=== PATIENT | male | born 1950 | race Caucasian/White ===

== ENCOUNTER → 2020-10-09 08:55 | Outpatient (BNVA) | payer MEDICARE, OTHER, SELFPAY | PROVIDERS: PCP Internal Medicine; Visit Provider Urology | DX: C67.9 Malignant neoplasm of bladder, unspecified (principal); N30.90 Cystitis, unspecified without hematuria | CPT/HCPCS: 52000; 81002; 99212 ==

== ENCOUNTER 2021-01-09 09:59 | Outpatient (REF) | payer MEDICARE, OTHER, SELFPAY ==
[2021-01-09 13:52] LABS: Urine Cytology See Pathology rpt
== END 2021-01-09 10:00 | disposition home or self-care (01) ==
LOC: CF 09:59
PROVIDERS: PCP Internal Medicine; Visit Provider Urology
DX: C67.9 Malignant neoplasm of bladder, unspecified (principal); N30.90 Cystitis, unspecified without hematuria
CPT/HCPCS: 52000; 81002; 88112

== ENCOUNTER → 2021-04-08 12:57 | Outpatient (BNVA) | payer MEDICARE, OTHER, SELFPAY | PROVIDERS: PCP Internal Medicine; Visit Provider Urology | DX: C67.9 Malignant neoplasm of bladder, unspecified (principal); N21.0 Calculus in bladder; N40.0 Benign prostatic hyperplasia without lower urinary tract symptoms | CPT/HCPCS: 52000; 99212 ==

== ENCOUNTER 2021-08-13 08:53 | Outpatient (REF) | payer MEDICARE, OTHER, SELFPAY ==
[2021-08-14 13:51] LABS: Urine Cytology See Pathology rpt
== END 2021-08-13 08:54 | disposition home or self-care (01) ==
LOC: HO.LAB 08:53
PROVIDERS: PCP Internal Medicine; Visit Provider Urology
DX: C67.9 Malignant neoplasm of bladder, unspecified (principal); N40.1 Benign prostatic hyperplasia with lower urinary tract symptoms
CPT/HCPCS: 52000; 88112; 99212

== ENCOUNTER 2022-02-12 08:48 | Outpatient (REF) | payer MEDICARE, OTHER, SELFPAY | END 2022-02-12 08:49 | disposition home or self-care (01) | LOC: HO.LAB 08:48 | PROVIDERS: PCP Internal Medicine; Visit Provider Urology | DX: C67.9 Malignant neoplasm of bladder, unspecified (principal); N40.1 Benign prostatic hyperplasia with lower urinary tract symptoms | CPT/HCPCS: 52000; 99212 ==

== ENCOUNTER 2022-05-04 09:03 | Outpatient (REF) | payer MEDICARE, OTHER, SELFPAY ==
[2022-05-04 11:51] LABS: Urine Cytology See Pathology rpt
[2022-05-04 12:15] LABS: Appearance Urine CLOUDY; Color Urine YELLOW; Glucose Urine UA NEG (NEG); Leukocyte Esterase Urine 2+ (NEG); Nitrite Urine POS (NEG); PH 7.5 (5.0-8.0); Specific Gravity - Urine 1.015 (1.005-1.025); Urine Blood 1+ (NEG); Urine Ketones NEG (NEG); Urine Protein TRACE MG/DL (NEG-TRACE)
[2022-05-04 12:37] LABS: WBC Urine TNTC /HPF (0-4)
[2022-05-04 12:38] LABS: Bacteria Urine 3+ /LPF
== END 2022-05-04 09:04 | disposition home or self-care (01) ==
LOC: HO.HMGCLDS 09:03
PROVIDERS: Visit Provider Urology
DX: C67.9 Malignant neoplasm of bladder, unspecified (principal); N30.90 Cystitis, unspecified without hematuria
CPT/HCPCS: 81001; 87086; 87088; 87186; 88112

== ENCOUNTER 2022-08-13 08:56 | Outpatient (REF) | payer MEDICARE, OTHER, SELFPAY ==
[2022-08-13 17:02] LABS: Urine Cytology See Pathology rpt
== END 2022-08-13 08:57 | disposition home or self-care (01) ==
LOC: HO.LAB 08:56
PROVIDERS: Visit Provider Urology
DX: C67.9 Malignant neoplasm of bladder, unspecified (principal); N40.1 Benign prostatic hyperplasia with lower urinary tract symptoms
CPT/HCPCS: 52000; 88112; 99212

== ENCOUNTER → 2023-02-18 08:47 | Outpatient (BNVA) | payer MEDICARE, OTHER, SELFPAY | PROVIDERS: PCP Internal Medicine; Visit Provider Urology | DX: N40.1 Benign prostatic hyperplasia with lower urinary tract symptoms (principal) | CPT/HCPCS: 52000; 99212 ==

== ENCOUNTER 2023-08-26 08:59 | Outpatient (REF) | payer MEDICARE, OTHER, SELFPAY | END 2023-08-26 09:00 | disposition home or self-care (01) | LOC: HO.LAB 08:59 | PROVIDERS: Visit Provider Urology | DX: C67.9 Malignant neoplasm of bladder, unspecified (principal); N40.1 Benign prostatic hyperplasia with lower urinary tract symptoms; R39.16 Straining to void | CPT/HCPCS: 52000; 81003; 88112; 99212 ==

== ENCOUNTER 2023-08-26 08:59 | Outpatient (AMB) | payer MEDICARE, OTHER, SELFPAY ==
--- NOTE | 2023-08-26 09:14 | MHC.OFFVIS ---
Intake Intake Visit Reasons: 6m/cysto(Bladder Cancer) Intake Note: Patient is Present for Cystoscopy Urology Med: None Antibiotic Allergy: None Blood Thinner: None Pharmacy: [facility] Cystoscope lot: [id number] exp:04/03/2025 Allergies No Known Allergies [No Known Allergies*] Allergy (Verified 08/26/23 09:20) HPI HPI Comments History of Present Illness Details Blas is a pleasant male. He is a patient Dr. Garcia. He is here for the following urologic conditions - bladder cancer Surveillance cystoscopy No evidence of recurrence Open TURP Bladder with trabeculation and cellules Bladder Cancer: May 2019 high-grade multifocal completed TURBT with gemcitabine sequence Bladder cancer was initially diagnosed during evaluation for microscopic hematuria - Dr Mason 04/08. Bladder intervention(s) performed 06/08 , TURBT, TUR and bladder stone removal 06/08 , TURBT, T1 invades subepthium, High Grade, multifocal 07/09 BCG induction, 09/08 Cysto - Bbx - BCG effect, 01/10 Gemcitabine boost, 10/10 gemcitabine boost Recurrence Risk per EORTC High Risk. Prior Cystoscopy 04/08 , Positive 01/10 BCG changes no lesions, 04/09 no lesions, 10/10 NAD, 04/10 NAD, 08/11 NAD, 04/11 NAD, 08/12 NAD, 08/13 NAD Prior Cytology 04/08 , Cells consistent with malignancy 04/08 , FISH, positive, 02/07 , FISH negative, 08/11 rare atypical, 05/12 NAD, 08/12 NAD Prior Imaging 04/08 , CT scan with contrast, No evidence for metastases, cysts in kidney. Planned treatment Repeat cystoscopy in 6 months. BPH Prior TURP Effective emptying High bladder neck on cystoscopy - significant trabeculation and diverticulum formation [facility] Medical History Acute eczema Thyroid disease Gross hematuria Acute prostatitis Bladder stone Benign prostatic hyperplasia with lower urinary tract symptoms Feeling of incomplete bladder emptying Malignant neoplasm of lateral wall of urinary bladder Microscopic hematuria Surgical History History of surgery Review of Systems Const Denies chills and Denies fever(s) Card Reports no additional complaints and Denies syncope Resp Denies cough GI Denies abdominal pain and Denies heartburn Reports as per HPI and Denies change in libido Neuro Denies syncope Psych Denies change in libido Endo Denies change in libido Physical Exam Const General: cooperative, healthy appearing, comfortable and no acute distress Orientation/consciousness: patient oriented x3 HEENT Face and sinus: Yes normal facial exam Mouth: moist mucous membranes Neck Neck: Yes normal visual inspection, Yes full ROM and Yes trachea midline Chest Chest palpation & inspection: normal inspection of the chest Resp Effort & Inspection: normal respiratory effort, able to speak in complete sentences and no respiratory distress GI Inspection: Yes normal to inspection Back/Spine/Pelvis Cervical Spine: normal cervical lordosis Thoracic/Lumbar Spine: thoracic and lumbar spine normal to inspection Skin General skin exam: no rashes or lesions noted Neuro General: patient oriented x3, gait normal, tone normal and moves all extremities Extrem General: Yes normal to inspection and Yes capillary refill normal Office Procedures Cystoscopy Consent Discussed risk and benefit or proposed procedure with the patient. Information consent for procedure given to the patient. Discussed technical aspects, risks, benefits and alternatives in full. Addressed all of the patient's questions and concerns regarding the procedure. The patient demonstrated knowledge and understanding. They wish to proceed with this procedure. Preparation The patient was prepped in the usual manner. A dental surgeon was present and in the room. Genitalia was prepped with betadine solution in a sterile manner. Lidocaine Jelly 2% was placed into the urethra and 16Fr flexible Olympus cystoscope was inserted into the meatus after adequate lubrication. Procedure Meatus circumcised Urethra anterior posterior urethra normal Prostatic Urethra prior TURP Bladder examination with retroflexion of cystoscope Bladder Orifices normal shape and position Bladder Capacity enlarged Trabeculations grade 3 Cellule Formation years Diverticulum Formation - Mucosal Erythema -- Bladder Tumor scar 49092-[id number] DISPOSABLE SCOPE URO-G FLEXIBLE SCOPE Procedure code (CPT) selection complete Office Meds lidocaine HCl 2 % mucosal jelly in applicator Performing Provider: Jose Luis Mason MD Performing Location: [facility] Administered by: Joseph Monahan LPN on 08/26/23 09:35 Dose Route Admin Location Dispensed Lot Number Expiration Date NDC Battery Recharger 10 mL intra-urethral 10 mL nitrofurantoin monohydrate/macrocrystals 100 mg capsule Performing Provider: Jose Luis Mason MD Performing Location: [facility] Administered by: Joseph Monahan LPN on 08/26/23 09:35 Dose Route Admin Location Dispensed Lot Number Expiration Date NDC Battery Recharger 100 mg PO 1 cap naproxen 500 mg tablet Performing Provider: Jose Luis Mason MD Performing [facility] Administered by: Joseph Monahan LPN on 08/26/23 09:35 Dose Route Admin Location Dispensed Lot Number Expiration Date NDC Battery Recharger 500 mg PO 1 tab Results AMB Urinalysis, Automated UA Leukoctes 0 Hung/uL Last Edit by KANCHAN Pretty on 08/26/23 09:31 UA Nitrite Negative Last Edit by TREVA PrettyA on 08/26/23 09:31 UA Urobilinogen 1 mg/dL Last Edit by KANCHAN Pretty on 08/26/23 09:31 UA Protein 0 mg/dL Last Edit by TREVA PrettyA on 08/26/23 09:31 UA pH 6.0 Last Edit by KANCHAN Pretty on 08/26/23 09:31 UA Blood 10 Casey/uL Last Edit by Silke Campbell A on 08/26/23 09:31 UA Specific [place] 1.015 Last Edit by KANCHAN Pretty on 08/26/23 09:31 UA Ketone Negative Last Edit by KANCHAN Pretty on 08/26/23 09:31 UA Bilirubin 0 mg/dL Last Edit by TREVA PrettyA on 08/26/23 09:31 UA Glucose 0 mg/dL Last Edit by KANCHAN Pretty on 08/26/23 09:31 Results Reviewed Results Reviewed: Laboratory Last Values Urine pH (Auto) 6.0 08/26/23 09:21 Specific [place] (Auto) 1.015 08/26/23 09:21 Urine Protein (Auto) 0 mg/dL 08/26/23 09:21 Glucose (UA)(Auto) 0 mg/dL 08/26/23 09:21 Urine Ketones (Auto) Negative 08/26/23 09:21 Urine Blood (Auto) 10 Casey/uL 08/26/23 09:21 Urine Nitrite (Auto) Negative 08/26/23 09:21 Urine Bilirubin (Auto) 0 mg/dL 08/26/23 09:21 Urine Urobilinogen (Auto) 1 mg/dL 08/26/23 09:21 Leukocyte Esterase (Auto) 0 Hung/uL 08/26/23 09:21 Assessment & Plan Assessment & Plan (1) Benign prostatic hyperplasia with lower urinary tract symptoms: Code(s): N40.1 - Benign prostatic hyperplasia with lower urinary tract symptoms Qualifiers: Lower urinary tract symptom detail: straining on urination Qualified Code(s): N40.1 - Benign prostatic hyperplasia with lower urinary tract symptoms; R39.16 - Straining to void Plan Six month follow-up cysto Orders: Orders AMB Urinalysis Automated Today C67.9 - Malignant neoplasm of bladder, unspecified, Z13.9 - Encounter for screening, unspecified Urine Cytology Today C67.9 - Malignant neoplasm of bladder, unspecified AMB Cystoscopy Today C67.9 - Malignant neoplasm of bladder, unspecified Patient Instructions: Imaging studies, laboratory and physical exam results were discussed and reviewed in detail. No major barriers to patient understanding were identified. An opportunity to ask questions regarding the treatment plan was provided. All questions were answered. The patient expressed understanding and agreement with the above treatment plan. The patient is aware they should contact our office by phone for worsening of their current condition or the appearance of new urologic symptoms. Compliance is encouraged with any medications and followup testing that is ordered. It is a privilege to participate in the urologic care of your patient. If you have any questions or concerns regarding treatment for the above conditions, or other urologic issues, please do not hesitate to contact me. The office telephone contact is [phone]. This note is constructed using voice recognition software. While every effort has been made to ensure accuracy public relations studies director errors may have been included. Yours sincerely, Dr Jose Luis Mason MD, [facility] - Urology Providers of Expert, Compassionate Care for the Genitourinary System Coding Level of Care Code Est Pt Level 3 (19058) Diagnoses Benign prostatic hyperplasia (BPH) with straining on urination N40.1; R39.16 Lower urinary tract symptom detail: straining on urination CPT Codes Cystoscopy - CPT: 13371-[id number] ([id number])
== END 2023-08-26 10:01 | disposition home or self-care (01) ==
PROVIDERS: PCP Internal Medicine; Visit Provider Urology
DX: N40.1 Benign prostatic hyperplasia with lower urinary tract symptoms (principal); R39.16 Straining to void; Z13.9 Encounter for screening, unspecified; C67.9 Malignant neoplasm of bladder, unspecified
CPT/HCPCS: 52000; 99213

== ENCOUNTER 2024-02-28 08:45 | Outpatient (AMB) | payer MEDICARE, OTHER, SELFPAY ==
--- NOTE | 2024-02-28 08:56 | A.OFFVIS_ITS ---
Intake Intake Visit Reasons: 6M Cysto(Confirmed) Intake Note: Patient is Present for Cystoscopy Urology Med:none Antibiotic Allergy: None Blood Thinner:None Pharmacy: [facility] Disposable Cystoscope lot: [id number] exp: 09/29/2026 Allergies No Known Allergies [No Known Allergies*] Allergy (Verified 02/28/24 08:57) Medication List - Last Reconciled 02/28/24 by Jose Luis Mason MD amlodipine 5 mg PO DAILY atorvastatin 80 mg PO DAILY levothyroxine 25 mcg PO DAILY levothyroxine 75 mcg PO DAILY metoprolol succinate ER 25 mg PO DAILY pravastatin 20 mg PO DAILY sulfamethoxazole-trimethoprim 800-160 mg (Bactrim DS) 1 tab PO BID 3 days ticagrelor (Brilinta) 90 mg PO BID HPI HPI Comments History of Present Illness Details Blas is a pleasant male. He is a patient Dr. Garcia. He is here for the following urologic conditions - bladder cancer - occasional UTI Surveillance cystoscopy No evidence of recurrence Open TURP Bladder with trabeculation and cellules Occasional infection would like on had medication. Bactrim scope provided Has been free from disease for 5 years. Move to yearly follow-up Bladder Cancer: May 2019 high-grade multifocal completed TURBT with gemcitabine sequence Bladder cancer was initially diagnosed during evaluation for microscopic hematuria - Dr Mason 04/08. Bladder intervention(s) performed 06/08 , TURBT, TUR and bladder stone removal 06/08 , TURBT, T1 invades subepthium, High Grade, multifocal 07/09 BCG induction, 09/08 Cysto - Bbx - BCG effect, 01/10 Gemcitabine boost, 10/10 gemcitabine boost Recurrence Risk per EORTC High Risk. Prior Cystoscopy 04/08 , Positive 01/10 BCG changes no lesions, 04/09 no lesions, 10/10 NAD, 04/10 NAD, 08/11 NAD, 04/11 NAD, 08/12 NAD, 08/13 NAD Prior Cytology 04/08 , Cells consistent with malignancy 04/08 , FISH, positive, 02/07 , FISH negative, 08/11 rare atypical, 05/12 NAD, 08/12 NAD, 08/13 NAD Prior Imaging 04/08 , CT scan with contrast, No evidence for metastases, cysts in kidney. Planned treatment Repeat cystoscopy in 6 months. BPH Prior TURP Effective emptying High bladder neck on cystoscopy - significant trabeculation and diverticulum formation PFS Medical History Acute eczema Thyroid disease Gross hematuria Acute prostatitis Bladder stone Benign prostatic hyperplasia with lower urinary tract symptoms Feeling of incomplete bladder emptying Malignant neoplasm of lateral wall of urinary bladder Microscopic hematuria Surgical History History of surgery Review of Systems Const Denies chills and Denies fever(s) Card Reports no additional complaints and Denies syncope Resp Denies cough GI Denies abdominal pain and Denies heartburn Reports as per HPI and Denies change in libido Neuro Denies syncope Psych Denies change in libido Endo Denies change in libido Physical Exam Const General: cooperative, healthy appearing, comfortable and no acute distress Orientation/consciousness: patient oriented x3 HEENT Face and sinus: Yes normal facial exam Mouth: moist mucous membranes Neck Neck: Yes normal visual inspection, Yes full ROM and Yes trachea midline Chest Chest palpation & inspection: normal inspection of the chest Resp Effort & Inspection: normal respiratory effort, able to speak in complete sentences and no respiratory distress GI Inspection: Yes normal to inspection Back/Spine/Pelvis Cervical Spine: normal cervical lordosis Thoracic/Lumbar Spine: thoracic and lumbar spine normal to inspection Skin General skin exam: no rashes or lesions noted Neuro General: patient oriented x3, gait normal, tone normal and moves all extremities Extrem General: Yes normal to inspection and Yes capillary refill normal Office Procedures Cystoscopy Consent Discussed risk and benefit or proposed procedure with the patient. Information consent for procedure given to the patient. Discussed technical aspects, risks, benefits and alternatives in full. Addressed all of the patient's questions and concerns regarding the procedure. The patient demonstrated knowledge and understanding. They wish to proceed with this procedure. Preparation The patient was prepped in the usual manner. A hvac services professional was present and in the room. Genitalia was prepped with betadine solution in a sterile manner. Lidocaine Jelly 2% was placed into the urethra and 16Fr flexible Olympus cystoscope was inserted into the meatus after adequate lubrication. Procedure Meatus circumcised Urethra anterior and posterior within normal Prostatic Urethra TURP defect Bladder examination with retroflexion of cystoscope Bladder Orifices normal shape and position Bladder Capacity medium Trabeculations moderate Cellule Formation yes, multiple Diverticulum Formation - Mucosal Erythema normal Bladder Tumor scarring [id number] DISPOSABLE SCOPE URO-G FLEXIBLE SCOPE Procedure code (CPT) selection complete Office Meds lidocaine HCl 2 % mucosal jelly in applicator Performing Provider: Jose Luis Mason MD Performing Location: [facility] [place] [facility] Administered by: Nickei Mabry RN on 02/28/24 09:02 Dose Route Admin Location Dispensed Lot Number Expiration Date NDC Branch Coordinator 10 mL intra-urethral 10 mL nitrofurantoin monohydrate/macrocrystals 100 mg capsule Performing Provider: Jose Luis Mason MD Performing Location: [facility] [place] [facility] Administered by: Nickie Mabry RN on 02/28/24 09:02 Dose Route Admin Location Dispensed Lot Number Expiration Date NDC Branch Coordinator 100 mg PO 1 cap naproxen 500 mg tablet Performing Provider: Jose Luis Mason MD Performing Location: [facility] [place] [facility] Administered by: Nickie Mabry RN on 02/28/24 09:02 Dose Route Admin Location Dispensed Lot Number Expiration Date NDC Branch Coordinator 500 mg PO 1 tab Results AMB Urinalysis, Automated UA Leukoctes 0 Hung/uL Last Edit by KANCHAN Pretty on 02/28/24 09:07 UA Nitrite Negative Last Edit by KANCHAN Pretty on 02/28/24 09:07 UA Urobilinogen 0.2 mg/dL Last Edit by KANCHAN Pretty on 02/28/24 09:0 7 UA Protein 0 mg/dL Last Edit by KANCHAN Pretty on 02/28/24 09:07 UA pH 6.0 Last Edit by KANCHAN Pretty on 02/28/24 09:07 UA Blood 25 Casey/uL Last Edit by KANCHAN Pretty on 02/28/24 09:07 UA Specific [place] 1.020 Last Edit by KANCHAN Pretty on 02/28/24 09: 07 UA Ketone Negative Last Edit by KANCHAN Pretty on 02/28/24 09:07 UA Bilirubin 0 mg/dL Last Edit by KANCHAN Pretty on 02/28/24 09:07 UA Glucose 0 mg/dL Last Edit by KANCHAN Pretty on 02/28/24 09:07 Assessment & Plan Assessment & Plan (1) Bladder cancer: Comment: 2019 superficial high-grade bladder cancer Code(s): C67.9 - Malignant neoplasm of bladder, unspecified (2) Benign prostatic hyperplasia with lower urinary tract symptoms: Code(s): N40.1 - Benign prostatic hyperplasia with lower urinary tract symptoms Qualifiers: Lower urinary tract symptom detail: straining on urination Qualified Code(s): N40.1 - Benign prostatic hyperplasia with lower urinary tract symptoms; R39.16 - Straining to void Plan Twelve month follow-up cysto Orders: Orders FISH Bladder Cancer Today C67.9 - Malignant neoplasm of bladder, unspecified AMB Urinalysis Automated Today Z13.9 - Encounter for screening, unspecified AMB Cystoscopy Today C67.9 - Malignant neoplasm of bladder, unspecified Medications: New sulfamethoxazole-trimethoprim 800-160 mg (Bactrim DS) 1 tab PO BID 3 days 6 tabs 1RF N40.1 - Benign prostatic hyperplasia with lower urinary tract symptoms, R39.16 - Straining to void Patient Instructions: Imaging studies, laboratory and physical exam results were discussed and reviewed in detail. No major barriers to patient understanding were identified. An opportunity to ask questions regarding the treatment plan was provided. All questions were answered. The patient expressed understanding and agreement with the above treatment plan. The patient is aware they should contact our office by phone for worsening of their current condition or the appearance of new urologic symptoms. Compliance is encouraged with any medications and followup testing that is ordered. It is a privilege to participate in the urologic care of your patient. If you have any questions or concerns regarding treatment for the above conditions, or other urologic issues, please do not hesitate to contact me. The office telephone contact is [phone]. This note is constructed using voice recognition software. While every effort has been made to ensure accuracy warping mill operator errors may have been included. Yours sincerely, Dr Jose Luis Mason MD, [facility] - Urology Providers of Expert, Compassionate Care for the Genitourinary System Coding Level of Care Code Est Pt Level 4 (36894) Diagnoses Bladder cancer C67.9 Benign prostatic hyperplasia (BPH) with straining on urination N40.1; R39.16 Lower urinary tract symptom detail: straining on urination CPT Codes Cystoscopy - CPT: [id number]-[id number] ([id number])
== END 2024-02-28 09:43 | disposition home or self-care (01) ==
PROVIDERS: PCP Internal Medicine; Visit Provider Urology
DX: N40.1 Benign prostatic hyperplasia with lower urinary tract symptoms (principal); R39.16 Straining to void; Z85.51 Personal history of malignant neoplasm of bladder; Z13.9 Encounter for screening, unspecified
CPT/HCPCS: 52000; 99214

== ENCOUNTER 2024-02-28 08:45 | Outpatient (REF) | payer MEDICARE, OTHER, SELFPAY | END 2024-02-28 08:46 | disposition home or self-care (01) | LOC: HO.LAB 08:45 | PROVIDERS: PCP Internal Medicine; Visit Provider Urology | DX: C67.9 Malignant neoplasm of bladder, unspecified (principal); R39.16 Straining to void; N40.1 Benign prostatic hyperplasia with lower urinary tract symptoms; Z79.899 Other long term (current) drug therapy | CPT/HCPCS: 52000; 81003; 88121; 99212 ==

== ENCOUNTER → 2024-07-18 13:57 | Outpatient (RCR) | payer MEDICARE, OTHER, SELFPAY ==
[2020-10-29 10:28] VITALS: BMI 29.7
[2020-10-29 10:29] VITALS: BP 160/89; PULSE 77; RESP 20; TEMP 37.1; O2SAT 98
[2020-10-29 10:40] LABS: Glucose Urine UA NEG (NEG); Leukocyte Esterase Urine NEG (NEG); Nitrite Urine NEG (NEG); PH 6.5 (5.0-8.0); Urine Blood TRACE (NEG); Urine Ketones NEG (NEG); Urine Protein NEG (NEG-TRACE)
[2020-10-29 10:41] LABS: Appearance Urine CLEAR; Color Urine YELLOW
[2020-10-29 10:47] LABS: RBC Urine 0-2 /HPF (0); WBC Urine 0 /HPF (0-4)
[2020-10-29] MEDS: Lidocaine HCl 2 % Urojet 10 ML JEL.PF.APP TOPICAL (12:27)
--- NOTE | 2020-10-29 14:49 | MHC.HEMONC ---
Addendum entered by Katherine Galindo RN 10/29/20 15:22: Some difficulty passing catheter, small amount of bleeding noted after cath placed Original Note: Pt here for bladder instillation. Urine collected and results reviewed. Consent signed, and procedure completed. Pt tolerated well. To return in 1 week for next treatment.
[2020-11-05 08:50] VITALS: BP 160/82; PULSE 75; TEMP 36.7; O2SAT 97
[2020-11-05 08:52] VITALS: BMI 29.4
[2020-11-05 09:17] LABS: Appearance Urine CLEAR; Color Urine YELLOW; Glucose Urine UA NEG (NEG); Leukocyte Esterase Urine NEG (NEG); Nitrite Urine NEG (NEG); Specific Gravity - Urine 1.015 (1.005-1.025); Urine Blood TRACE (NEG); Urine Ketones NEG (NEG); Urine Protein NEG (NEG-TRACE)
[2020-11-05 09:26] LABS: WBC Urine 0 /HPF (0-4)
[2020-11-05] MEDS: Lidocaine HCl 2 % Urojet 10 ML JEL.PF.APP TOPICAL (10:23)
--- NOTE | 2020-11-05 13:58 | MHC.HEMONC ---
Pt here for bladder instillation. States feels fine after last treatment. Urine obtained and sent. Results sent to Dr Mason. Procedure done and pt tolerated well. Scheduled to return in 1 week.
[2020-11-12 08:47] VITALS: BP 152/81; PULSE 76; RESP 18; TEMP 36.7; O2SAT 97; BMI 30.1
[2020-11-12 09:17] LABS: Glucose Urine UA NEG (NEG); Leukocyte Esterase Urine NEG (NEG); Nitrite Urine NEG (NEG); Urine Blood NEG (NEG); Urine Ketones NEG (NEG); Urine Protein NEG (NEG-TRACE)
[2020-11-12 09:21] LABS: Appearance Urine CLEAR; Color Urine YELLOW
[2020-11-12 09:42] LABS: RBC Urine 0-2 /HPF (0)
[2020-11-12] MEDS: Lidocaine HCl 2 % Urojet 10 ML JEL.PF.APP TOPICAL (10:26)
--- NOTE | 2020-11-12 11:15 | MHC.HEMONC ---
Pt here for final bladder instillation. Urine sent to lab, and results reviewed, sent to Dr Mason via [employer]. Pt states did well after last treatment. Treatment done without difficulty, pt tolerated well. Will follow up with Dr Mason, states has appointment in November.
== END | disposition home or self-care (01) ==
LOC: HO.ONC 10-29 09:55
PROVIDERS: PCP Internal Medicine; Visit Provider Urology
DX: Z51.11 Encounter for antineoplastic chemotherapy (principal); C67.9 Malignant neoplasm of bladder, unspecified
CPT/HCPCS: 51720; 81001; J9201

== ENCOUNTER 2025-02-27 08:43 | Outpatient (AMB) | payer MEDICARE, OTHER, SELFPAY ==
--- NOTE | 2025-02-27 08:49 | A.OFFVIS_ITS ---
Intake Visit Reasons: cysto Intake Note: Patient is present for Cystoscopy Urology Medication:NONE Antibiotic Allergy:NONE Blood Thinner:NONE Lot:[id number] Exp:03/29/27 Shrimp Picker Required: No Allergies No Known Allergies [No Known Allergies*] Allergy (Verified 02/27/25 08:50) HPI Comments Details: Blas is a pleasant male. He is a patient Dr. Garcia. He is here for the following urologic conditions - bladder cancer - occasional UTI Yearly surveillance cystoscopy No evidence of recurrence Open TURP Bladder with trabeculation and cellules Continue yearly follow-up for high-grade multifocal disease Add Bactrim for the year Bladder Cancer: May 2019 high-grade multifocal completed TURBT with gemcitabine sequence Bladder cancer was initially diagnosed during evaluation for microscopic hematuria - Dr Mason 04/08. Bladder intervention(s) performed 06/08 , TURBT, TUR and bladder stone removal 06/08 , TURBT, T1 invades subepthium, High Grade, multifocal 07/09 BCG induction, 09/08 Cysto - Bbx - BCG effect, 01/10 Gemcitabine boost, 10/10 gemcitabine boost Recurrence Risk per EORTC High Risk. Prior Cystoscopy 04/08 , Positive 01/10 BCG changes no lesions, 04/09 no lesions, 10/10 NAD, 04/10 NAD, 08/11 NAD, 04/11 NAD, 08/12 NAD, 08/13 NAD Prior Cytology 04/08 , Cells consistent with malignancy 04/08 , FISH, positive, 02/07 , FISH negative, 08/11 rare atypical, 05/12 NAD, 08/12 NAD, 08/13 NAD Prior Imaging 04/08 , CT scan with contrast, No evidence for metastases, cysts in kidney. Planned treatment Repeat cystoscopy in 6 months. BPH Prior TURP Effective emptying High bladder neck on cystoscopy - significant trabeculation and diverticulum formation PFSH Medical History Acute eczema Thyroid disease Gross hematuria Acute prostatitis Bladder stone Benign prostatic hyperplasia with lower urinary tract symptoms Feeling of incomplete bladder emptying Malignant neoplasm of lateral wall of urinary bladder Microscopic hematuria Surgical History History of surgery Review of Systems Const Denies chills and Denies fever(s) Card Reports no additional complaints and Denies syncope Resp Denies cough GI Denies abdominal pain and Denies heartburn Reports as per HPI and Denies change in libido Neuro Denies syncope Psych Denies change in libido Endo Denies change in libido Physical Exam Const General: cooperative, healthy appearing, comfortable and no acute distress Orientation/consciousness: patient oriented x3 HEENT Face and sinus: Yes normal facial exam Mouth: moist mucous membranes Neck Neck: Yes normal visual inspection, Yes full ROM and Yes trachea midline Chest Chest palpation & inspection: normal inspection of the chest Resp Effort & Inspection: normal respiratory effort, able to speak in complete sentences and no respiratory distress GI Inspection: Yes normal to inspection Back/Spine/Pelvis Cervical Spine: normal cervical lordosis Thoracic/Lumbar Spine: thoracic and lumbar spine normal to inspection Skin General skin exam: no rashes or lesions noted Neuro General: patient oriented x3, gait normal, tone normal and moves all extremities Extrem General: Yes normal to inspection and Yes capillary refill normal Office Procedures Cystoscopy Consent Discussed risk and benefit or proposed procedure with the patient. Information consent for procedure given to the patient. Discussed technical aspects, risks, benefits and alternatives in full. Addressed all of the patient's questions and concerns regarding the procedure. The patient demonstrated knowledge and understanding. They wish to proceed with this procedure. Preparation The patient was prepped in the usual manner. A city auditor was present and in the room. Genitalia was prepped with betadine solution in a sterile manner. Lidocaine Jelly 2% was placed into the urethra and 16Fr flexible Olympus cystoscope was inserted into the meatus after adequate lubrication. Procedure Cystoscopy performed using a disposable Urovue digital 16 Swedish cystoscope. Meatus circumcised Urethra anterior and posterior urethra normal Prostatic Urethra TURP defect Bladder examination with retroflexion of cystoscope Bladder Orifices normal shape and position Bladder Capacity median Trabeculations grade 2 Cellule Formation - Diverticulum Formation - Mucosal Erythema - Bladder Tumor - [id number] DISPOSABLE SCOPE URO-G FLEXIBLE SCOPE Procedure code (CPT) selection complete Office Meds lidocaine HCl 2 % mucosal jelly in applicator Performing Provider: Jose Luis Mason MD Performing Location: [facility] Administered by: Leyla Franco RN on 02/27/25 09:08 Dose Route Admin Location Dispensed Lot Number Expiration Date [facility] Photographer Aerial 10 mL intra-urethral 10 mL nitrofurantoin monohydrate/macrocrystals 100 mg capsule Performing Provider: Jose Luis Mason MD Performing Location: [facility] [place] [facility] Administered by: Leyla Franco RN on 02/27/25 09:08 Dose Route Admin Location Dispensed Lot Number Expiration Date [employer] Photographer Aerial 100 mg PO 1 cap Results AMB Urinalysis, Automated UA Leukoctes 0 Hung/uL Last Edit by CHRISTIANO Stanton on 02/27/25 09:01 UA Nitrite Negative Last Edit by CHRISTIANO Stanton on 02/27/25 09:01 UA Urobilinogen 0.2 mg/dL Last Edit by CHRISTIANO Stanton on 02/27/25 09:0 1 UA Protein 15 mg/dL Last Edit by CHRISTIANO Stanton on 02/27/25 09:01 UA pH 6.0 Last Edit by CHRISTIANO Stanton on 02/27/25 09:01 UA Blood 10 Casey/uL Last Edit by CHRISTIANO Stanton on 02/27/25 09:01 UA Specific [place] 1.020 Last Edit by CHRISTIANO Stanton on 02/27/25 09: 01 UA Ketone Negative Last Edit by CHRISTIANO Stanton on 02/27/25 09:01 UA Bilirubin 0 mg/dL Last Edit by CHRISTIANO Stanton on 02/27/25 09:01 UA Glucose 0 mg/dL Last Edit by CHRISTIANO Stanton on 02/27/25 09:01 Results Reviewed Results Reviewed: Laboratory Last Values Urine pH (Auto) 6.0 02/27/25 09:00 Specific [place] (Auto) 1.020 02/27/25 09:00 Urine Protein (Auto) 15 mg/dL 02/27/25 09:00 Glucose (UA)(Auto) 0 mg/dL 02/27/25 09:00 Urine Ketones (Auto) Negative 02/27/25 09:00 Urine Blood (Auto) 10 Casey/uL 02/27/25 09:00 Urine Nitrite (Auto) Negative 02/27/25 09:00 Urine Bilirubin (Auto) 0 mg/dL 02/27/25 09:00 Urine Urobilinogen (Auto) 0.2 mg/dL 02/27/25 09:00 Leukocyte Esterase (Auto) 0 Hung/uL 02/27/25 09:00 Assessment & Plan Assessment & Plan (1) Cystitis: Code(s): N30.90 - Cystitis, unspecified without hematuria Category: Medical (2) Bladder cancer: Comment: 2019 superficial high-grade bladder cancer Code(s): C67.9 - Malignant neoplasm of bladder, unspecified Category: Medical Plan Twelve month follow-up cysto office Orders: Orders AMB Urinalysis Automated Today Z13.9 - Encounter for screening, unspecified AMB Cystoscopy Today C67.9 - Malignant neoplasm of bladder, unspecified Urine Cytology Today C67.9 - Malignant neoplasm of bladder, unspecified Patient Instructions: This note is constructed using voice recognition software. While every effort has been made to ensure accuracy bottle house pumper errors may have been included. Imaging studies, laboratory and physical exam results were discussed and reviewed in detail. No major barriers to patient understanding were identified. An opportunity to ask questions regarding the treatment plan was provided. All questions were answered. The patient expressed understanding and agreement with the above treatment plan. The patient is aware they should contact our office by phone for worsening of their current condition or the appearance of new urologic symptoms. Compliance is encouraged with any medications and followup testing that is ordered. It is a privilege to participate in the urologic care of your patient. If you have any questions or concerns regarding treatment for the above conditions, or other urologic issues, please do not hesitate to contact me. The office telephone contact is [phone]. Sincerely, Dr Jose Luis Mason MD, [facility] - Urology Compassionate Specialist Care for the Genitourinary System Coding Level of Care Code Est Pt Level 4 (35153) Complex EM visit Add On G2211 Diagnoses Cystitis N30.90 Bladder cancer C67.9 CPT Codes Cystoscopy - CPT: 62820-[id number] ([id number])
--- OUTSIDE RECORDS SUMMARY | 2025-02-27 09:02 | XMS_ITS | Patient Health Record ---
Author Organization [facility] Address [address] [facility] [place] [address] Care Team Providers Care Cashier Ticket Selling Name Role Phone Gama Garcia MD Primary Care Provider Lissy Doran Unavailable [phone] Allergies No Known Allergies Reason For Referral No Information Medications Medication SIG (Take, Route, Frequency, Duration) Notes Start Date End Date Status Levothyroxine Sodium 75 MCG 1 tablet in the morning on an empty stomach Orally Once a day for 30 day(s) Active amLODIPine Besylate 5 MG 1 tablet Orally Once a day for 30 day(s) Active Levothyroxine Sodium 75 MCG 1 tablet in the morning on an empty stomach Orally Once a day for 30 day(s) Active Pravastatin Sodium 20 MG 1 tablet Orally Once a day for 30 day(s) Active amLODIPine Besylate 5 MG 1 tablet Orally Once a day for 30 day(s) Active Pravastatin Sodium 20 MG 1 tablet Orally Once a day for 30 day(s) Active Social History Tobacco Use: Social History Observation Description Date Details (start date - stop date) Never Smoker NA - NA Tobacco Use/Smoking Question Answer Notes Are you a: nonsmoker Alcohol Screen Question Answer Notes Did you have a drink containing alcohol in the p ast year? Yes Points 0 Interpretation Negative Tobacco use other than smoking: Question Answer Notes Are you an other tobacco user? No Plan Of Treatment No Information Insurance Providers Payer Name Payer Address Payer Phone Subscriber Number Group Number Insured Name Patient Relationship to Insured Coverage Start Date Coverage End Date Medicare National [employer]t [employer] [address] [place] [address] [id number] Blas Chris Self - patient is the insured [facility] [employer]) [address] [place], [place] [id number] Blas Chris Self - patient is the insured Medical (General) History Medical History History ICD Code Broken bones CAD (Cholesterol) Cancer High blood pressure thyroid Surgical History Surgery Date(Month/Year)
--- OUTSIDE RECORDS SUMMARY | 2025-02-27 09:02 | XMS_ITS | Clinical Summary ---
Author Organization [facility], Address [address] [place] [address] [place] [address] Phone Care Team Providers Care Septic Tank Servicer Name Role Phone Gama Garcia MD Primary Care Provider [phone] Medications betamethasone dipropionate (DIPROLENE) 0.05 % cream Comments: Filled Date: Oct 31 2018 12:00AM Patient Notes: APPLY TOPICALLY THE AFFECTED AREA ON ARM & ABDOMEN TWICE DAILY FOR 2WE EKS ON,TAKE 1WEEK OFF & REPEAT Duration: 14 07/31/20 18 Active levothyroxine (SYNTHROID, LEVOTHROID) 25 MCG tablet Comments: Filled Date: Nov 22 2018 12:00AM Patient Notes: TAKE 1 TABLET BY MOUTH EVERY DAY Duration: 90 11/22/19 19 Active pneumococcal conjugate (Prevnar 13) vaccine Comments: Filled Date: Dec 05 2018 12:00AM Patient Notes: inject 0.5 milliliter intramuscularly Duration: 1 12/05/19 19 Active pravastatin (PRAVACHOL) 20 MG tablet Comments: Filled Date: Sep 18 2018 12:00AM Patient Notes: TAKE 1 TABLET BY MOUTH EVERY DAY Duration: 90 09/18/20 18 Active Active Problems Problem Noted Date Diagnosed Date Chronic kidney disease stage 3 04/21/2020 Hyperlipidemia 04/21/2020 Hypothyroidism 04/21/2020 Family History Relation Status Comments Father Unknown Mother Unknown Social History Tobacco Use Types Packs/Day Years Used Date Smoking Tobacco: Never Alcohol Use Standard Drinks/Week Comments No 0 (1 standard drink = 0.6 oz pur e alcohol) Sex and Gender Information Value Date Recorded Sex Assigned at Not on file Legal Sex Male 4:32 PM EST Gender Identity Not on file Sexual Orientation Not on file Last Filed Vital Signs Vital Sign Reading Time Taken Comments Blood Pressure 118/70 07/31/2019 12:00 PM EDT Pulse - - Temperature - - Respiratory Rate - - Oxygen Saturation - - Inhaled Oxygen Concentration - - Weight 90.3 kg (199 lb) 07/31/2019 12:00 PM EDT Height 180.3 cm (5' 11 ) 07/31/2019 12:00 PM EDT Body Mass Index 27.75 07/31/2019 12:00 PM EDT Plan of Treatment Health Maintenance Due Date Last Done Comments Pneumococcal Vaccine: 65+ Ye ars (1 of 2 - PCV) 1956 Colorectal Cancer Screening: Annual FOBT 1999 Colorectal Cancer Screening: Colonoscopy 1999 Colorectal Cancer Screening: Sigmoidoscopy 1999 Influenza Vaccine (Season Ended) 2025 Hepatitis B Vaccine Aged Out No longe r eligible based on patient's age to complete this topic Insurance MEDICARE [facility] Care Teams Septic Tank Servicer Relationship Specialty Start Date End Date Gama Garcia MD [address] [place] [address] PCP - General Internal Medicine 05/13/20
== END 2025-02-27 09:44 | disposition home or self-care (01) ==
LOC: HO.HUSH 08:43
PROVIDERS: PCP Internal Medicine; Visit Provider Urology
DX: N30.90 Cystitis, unspecified without hematuria (principal); C67.9 Malignant neoplasm of bladder, unspecified; Z13.9 Encounter for screening, unspecified
CPT/HCPCS: 52000; 99214; G2211

== ENCOUNTER 2025-02-27 08:43 | Outpatient (REF) | payer MEDICARE, OTHER, SELFPAY ==
[2025-02-27 16:49] LABS: Urine Cytology See Pathology rpt
--- OUTSIDE RECORDS SUMMARY | 2025-02-27 17:52 | XMS_ITS | Clinical Summary ---
Author Organization [facility], Address [address] [place] [address] [place] [address] Phone Care Team Providers Care Paint Crew Supervisor Name Role Phone Gama Garcia MD Primary Care Provider [phone] Medications betamethasone dipropionate (DIPROLENE) 0.05 % cream [...] age to complete this topic Insurance MEDICARE [facility] Care Teams Paint Crew Supervisor Relationship Specialty Start Date End Date Gama Garcia MD [address] [place] [address] PCP - General Internal Medicine 05/13/20
== END 2025-02-27 08:44 | disposition home or self-care (01) ==
LOC: HO.LNP 08:43
PROVIDERS: PCP Internal Medicine; Visit Provider Urology
DX: C67.9 Malignant neoplasm of bladder, unspecified (principal)
CPT/HCPCS: 52000; 81003; 88112; 99212